=== PATIENT | male | born 1975 | race Caucasian/White ===

== ENCOUNTER 2017-05-15 18:32 | Emergency (ER) | payer OTHER ==
[2017-05-15 18:48] VITALS: BP 152/76; PULSE 83; TEMP 98.1; BMI 27.8
--- NOTE | 2017-05-15 19:06 | PDOC ---
History of Present Illness - General History Source: Patient Exam Limitations: No Limitations <Oseas Bosch - Last Filed: 05/15/17 19:06> - General History Source: Patient Exam Limitations: No Limitations - History of Present Illness Initial Comments: 05/15/17 19:08 The patient is a 41 year old male, with significant past medical history of sciatica, who presents to the emergency room with 2 days of a rash on the back, arms, chest, face, and scalp. The patient states that he first noticed a plaque on his back that has spread to the rest of his body. The rash is not itchy or painful. The patients states that no one in his family or that he has been in contact with has a rash. The patient notes that he has been sweating and working out a lot with compression shirts. Denies fever, chills, nausea, vomiting. Denies recent change in diet, detergents, soap. Denies recent travel. Allergies: none reported <Juany Winslow - Last Filed: 05/15/17 19:14> - General Chief Complaint: Rash Stated Complaint: RASH Time Seen by Provider: 05/15/17 18:42 Past History - Psycho/Social/Smoking Cessation Hx Anxiety: No Suicidal Ideation: No Smoking History: Never smoked Hx Alcohol Use: No Drug/Substance Use Hx: No Substance Use Type: None <Oseas Bosch - Last Filed: 05/15/17 19:06> <Juany Winslow - Last Filed: 05/15/17 19:14> - Past Medical History Allergies/Adverse Reactions: Allergies Allergy/AdvReac Type Severity Reaction Status Date / Time No Known Allergies Allergy Verified 05/15/17 18:38 Home Medications: Ambulatory Orders NK [No Known Home Medication] 05/15/17 Review of Systems - Review of Systems Able to Perform ROS?: Yes Comments:: 05/15/17 19:09 GENERAL/CONSTITUTIONAL: No fever or chills. No weakness. HEAD, EYES, EARS, NOSE AND THROAT: No change in vision. No ear pain or discharge. No sore throat. CARDIOVASCULAR: No chest pain or shortness of breath. RESPIRATORY: No cough, wheezing, or hemoptysis. GASTROINTESTINAL: No nausea, vomiting, diarrhea or constipation. GENITOURINARY: No dysuria, frequency, or change in urination. MUSCULOSKELETAL: No joint or muscle swelling or pain. No neck or back pain. SKIN: No rash NEUROLOGIC: No headache, vertigo, loss of consciousness, or change in strength/ sensation. ENDOCRINE: No increased thirst. No abnormal weight change. HEMATOLOGIC/LYMPHATIC: No anemia, easy bleeding, or history of blood clots. ALLERGIC/IMMUNOLOGIC: +rash to the chest, back, upper and lower extremities x 2 days. <Juany Winslow - Last Filed: 05/15/17 19:14> *Physical Exam - Vital Signs Last Vital Signs Temp Pulse Resp BP Pulse Ox 98.1 F 83 15 152/76 99 05/15/17 18:37 05/15/17 18:37 05/15/17 18:37 05/15/17 18:37 05/15/17 18:37 <Oseas Bosch - Last Filed: 05/15/17 19:06> - Vital Signs Last Vital Signs Temp Pulse Resp BP Pulse Ox 98.1 F 83 15 152/76 99 05/15/17 18:37 05/15/17 18:37 05/15/17 18:37 05/15/17 18:37 05/15/17 18:37 - Physical Exam Comments: 05/15/17 19:09 GENERAL: Awake, alert, and fully oriented, in no acute distress HEAD: No signs of trauma EYES: PERRLA, EOMI, sclera anicteric, conjunctiva clear ENT: Auricles normal inspection, hearing grossly normal, nares patent, oropharynx clear without exudates. Moist mucosa NECK: Normal ROM, supple, no lymphadenopathy, JVD, or masses LUNGS: Breath sounds equal, clear to auscultation bilaterally. No wheezes, and no crackles HEART: Regular rate and rhythm, normal S1 and S2, no murmurs, rubs or gallops ABDOMEN: Soft, nontender, normoactive bowel sounds. No guarding, no rebound. No masses EXTREMITIES: Normal range of motion, no edema. No clubbing or cyanosis. No cords, erythema, or tenderness NEUROLOGICAL: Cranial nerves II through XII grossly intact. Normal speech, normal gait SKIN:+Small vladimir patch in left lower back with diffuse macular plaques on the trunk, back, and upper and lower extremities. <Juany Winslow - Last Filed: 05/15/17 19:14> Medical Decision Making - Medical Decision Making 05/15/17 19:06 A portion of this note was documented by scribe services under my direction. I have reviewed the details of the note, within reason, and agree with the documentation with the following case summary and management plan written by me. Patient treated in the ED. Nursing notes are reviewed and incorporated into the medical decision-making. Vital signs reviewed. Peripheral IV access obtained by the nurse, laboratory studies are drawn and sent, reviewed and interpreted by myself. Vital Signs Temp Pulse Resp BP Pulse Ox 98.1 F 83 15 152/76 99 05/15/17 18:37 05/15/17 18:37 05/15/17 18:37 05/15/17 18:37 05/15/17 18:37 41-year-old male with no past medical history presents with a rash for 2 days. Patient noticed a herald patch in his back and subsequently developed a diffuse macular plaques. Denies recent illnesses, fevers chills, cough, vomiting, diarrhea. Denies pleuritic or painful component. I suspect the patient has pityriasis rosea. Supportive care. Follow with PMD. Precautions were given to the patient in regards if patient developed a superinfection. I cautioned in regards with exercise and that if he develops worsening redness to return to the ED for further evaluation. I discussed the physical exam findings, ancillary test results and final diagnoses with the patient. I answered all of the patient's questions. The patient was satisfied with the care received and felt comfortable with the discharge plan and treatment plan. The patient will call their primary care physician within 24 hours to arrange follow-up and will return to the Emergency Department with any new, persistant or worsening symptoms. <Oseas Bosch - Last Filed: 05/15/17 19:06> *DC/Admit/Observation/Transfer - Discharge Dispostion Admit: No <Oseas Bosch - Last Filed: 05/15/17 19:06> - Attestations Scribe Attestion: 05/15/17 19:10 Documentation prepared by CELESTE Glez, acting as biomedical equipment tech for Oseas Bosch MD. <Juany Winslow - Last Filed: 05/15/17 19:14> Diagnosis at time of Disposition: Pityriasis rosea - Discharge Dispostion Disposition: HOME Condition at time of disposition: Good - Referrals Referrals: Edgardo Miles MD [Primary Care Provider] - Diandra Fisher MD [Staff Physician] - - Patient Instructions Printed Discharge Instructions: DI for Pityriasis Rosea Additional Instructions: Please follow up with your doctor. It may take several days before your symptoms improve.
== END 2017-05-15 19:11 | disposition home or self-care (01) ==
LOC: FER 18:32
DX: L42 Pityriasis rosea (principal); M54.30 Sciatica, unspecified side
CPT/HCPCS: 99281-25

== ENCOUNTER 2022-12-24 00:39 | Emergency (ER) | payer OTHER ==
[2022-12-24 00:51] VITALS: BP 131/87; PULSE 65; RESP 16; TEMP 97.9; BMI 31.6
[2022-12-24] MEDS ORDERED: ALPRAZolam 0.25 MG TABLET PO ONE (00:57)
[2022-12-24] MEDS ORDERED: ALPRAZolam 0.25 MG TABLET ONE (00:59)
== END 2022-12-24 01:14 | disposition home or self-care (01) ==
LOC: FER 00:39
DX: G47.00 Insomnia, unspecified (principal); F41.9 Anxiety disorder, unspecified
CPT/HCPCS: 99283-25

== ENCOUNTER 2025-05-04 12:42 | Emergency (ER) | payer OTHER ==
[2025-05-04 12:58] VITALS: BP 147/101; PULSE 72; RESP 17; TEMP 98.1; BMI 33.6
[2025-05-04] MEDS ORDERED: IBUPROFEN 600 MG TABLET (FP) PO ONE (13:44)
[2025-05-04] MEDS: IBUPROFEN 600 MG TABLET (FP) PO ONE (13:46)
== END 2025-05-04 14:25 | disposition home or self-care (01) ==
LOC: FER 12:42
DX: M25.521 Pain in right elbow (principal); M79.621 Pain in right upper arm; M79.631 Pain in right forearm; I10 Essential (primary) hypertension; X50.1XXA Overexertion from prolonged static or awkward postures, initial encounter; Y99.0 Civilian activity done for income or pay
CPT/HCPCS: 99283-25